=== PATIENT | male | born 1980 | race Caucasian/White ===

== ENCOUNTER 2020-10-26 12:42 | Emergency (ER) | payer OTHER ==
[~2020-10-26] VITALS: Ht 185.4 cm; Wt 126.5 kg
[2020-10-26] MEDS ORDERED: LANTINJ4 SC (13:25)
[2020-10-26] MEDS ORDERED: TRAZ-257 PO (13:25)
[2020-10-26] MEDS ORDERED: PRAZ2CAP PO (13:25)
[2020-10-26] MEDS ORDERED: OMEP10CASR PO (13:25)
[2020-10-26] MEDS ORDERED: METF500T13 PO (13:25)
--- NOTE | 2020-10-26 13:46 | REP ---
INDICATION: pain, trauma, ACL repair in the past. COMPARISON: None. TECHNIQUE: Five views of the right knee are provided. FINDINGS: Five views of the right knee demonstrate evidence of joint fluid visible on lateral radiograph. No fracture or subluxation is seen. Patient is status post prior ACL reconstruction. The tibial and femoral tunnels are unremarkable. There is mild medial and lateral osteoarthritic spurring. No erosive changes seen. IMPRESSION: No fracture or other acute bony abnormality. Status post ACL repair surgery. Probable joint effusion. <Electronically signed by Alexander Jensen > 10/26/20 1316
[2020-10-26 16:40] VITALS: BP 140/80
== END 2020-10-26 16:55 | disposition home or self-care (01) ==
LOC: M ED 12:42
DX: M25.561 Pain in right knee (principal); M25.461 Effusion, right knee; E11.9 Type 2 diabetes mellitus without complications; K21.9 Gastro-esophageal reflux disease without esophagitis; F43.10 Post-traumatic stress disorder, unspecified; Z79.4 Long term (current) use of insulin; Z79.899 Other long term (current) drug therapy; Z88.0 Allergy status to penicillin; Z88.5 Allergy status to narcotic agent